=== PATIENT | male | born 1945 | race Caucasian/White ===

== ENCOUNTER 2019-05-01 06:01 | Observation (INO) | payer MEDICARE, BC ==
[2019-05-01] MEDS: Ondansetron 4 MG/2 ML SDV IVPUSH ONE (06:39)
--- NOTE | 2019-05-01 07:00 | EDM.PDOC ---
ED HPI GENERAL MEDICAL PROBLEM - General Chief Complaint: General Stated Complaint: allergic reaction Time Seen by Provider: 05/01/19 06:04 Source of Information: Reports: Patient, EMS, Significant Other History Limitations: Reports: No Limitations - History of Present Illness INITIAL COMMENTS - FREE TEXT/NARRATIVE: Patient presents with allergic reaction to sunflower oil. EMS gave a dose of 0.3 mg epinephrine IM on arrival to patient's house and another dose about 7 minutes later en route. Patient was dusky and having some difficulty breathing initially with sats 82%. He was given Benadryl 50 mg IV after the [facility] intercept about 10 minutes later. Patient improved significantly following the above treatments and is breathing easily on arrival to ER. He has an erythematous, non-urticarial rash on head, neck and trunk. Patient says this started at midnight when he awoke with diarrhea urge. He fainted in the bathroom but his says he didn't hit head or anything. Between 1-2 hours later he developed the rash and airway swelling. He took Benadryl and when it didn't settle down called 911. 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 Since then he and his have meticulously avoided it in foods but accidentally ingested it in some Rice-a-[employer]avier at 1800 last night for supper when they each thought the other had checked ingredients. The 2007 episode involved swelling of his tongue which he doesn't have today. Treatments BREAK OUT WORKER: Reports: Other (see below) Other Treatments BREAK OUT WORKER: benadryl x 2 at home 0130 25 mg more 0345 - Related Data Allergies Allergy/AdvReac Type Severity Reaction Status Date / Time sun flower oil Allergy Seizure Uncoded 05/01/19 06:39 Home Meds: Home Meds Aspirin [Adult Low Dose Aspirin EC] 81 mg PO DAILY 05/01/19 [History] Cyanocobalamin (Vitamin B-12) [B-12] 1,000 mcg PO DAILY 05/01/19 [History] Ferrous Gluconate 324 mg PO Q48H 05/01/19 [History] Fish Oil/[place]-3 Fatty Acids [Fish Oil 1,000 MG] 1,000 mg PO DAILY 05/01/19 [ History] Lisinopril [Zestril] 5 mg PO DAILY 05/01/19 [History] Magnesium 200 mg PO BID 05/01/19 [History] Metoprolol Tartrate [Lopressor] 25 mg PO BID 05/01/19 [History] Omeprazole 20 mg PO Q48H 05/01/19 [History] Simvastatin 5 mg PO BEDTIME 05/01/19 [History] amLODIPine [Norvasc] 5 mg PO DAILY 05/01/19 [History] metFORMIN HCl [Metformin HCl ER] 750 mg PO BID 05/01/19 [History] Social & Family History - Tobacco Use Smoking Status *Q: Never Smoker Second Hand Smoke Exposure: No - Caffeine Use Caffeine Use: Reports: Coffee, Soda - Recreational Drug Use Recreational Drug Use: No ED ROS GENERAL - Review of Systems Review Of Systems: See Below Constitutional: Denies: Fever, Chills HEENT: Reports: Throat Swelling Respiratory: Reports: Shortness of Breath, Other (No Hx of asthma or COPD). Denies: Wheezing, Cough Cardiovascular: Reports: Lightheadedness, Syncope. Denies: Chest Pain Endocrine: Reports: Other (He has NIDDM and takes metformin. He doesn't check glucose at home but generally his glucose was usually in the 90's his states.) GI/Abdominal: Reports: Diarrhea, Vomiting. Denies: Abdominal Pain : Denies: Incontinence (not normally) Musculoskeletal: Denies: Neck Pain, Shoulder Pain, Arm Pain, Back Pain, Hand Pain Skin: Reports: Pruritis, Rash. Denies: Cyanosis, Jaundice, Mottled, Pallor, Diaphoresis, Urticaria Neurological: Reports: Seizure (in ambulance following second dose of epi per EMS). Denies: Confusion, Headache, Trouble Speaking Psychiatric: Denies: Agitation, Anxiety, Confusion Immunologic: Reports: Anaphylaxis, Food Allergy ED EXAM, GENERAL - Physical Exam Exam: See Below Exam Limited By: No Limitations General Appearance: Alert, WD/WN, No Apparent Distress Eye Exam: Bilateral Eye: EOMI, Normal Inspection, PERRL Ears: Normal External Exam, Hearing Grossly Normal Nose: Normal Inspection, No Blood Throat/Mouth: Normal Inspection, Normal Lips, Normal Oropharynx, Normal Voice, No Airway Compromise. No: Perioral Cyanosis Head: Atraumatic, Normocephalic Neck: Normal Inspection, Supple, Non-Tender, Full Range of Motion. No: Carotid Bruit Respiratory/Chest: No Respiratory Distress, Lungs Clear, Normal Breath Sounds, No Accessory Muscle Use. No: Crackles, Rales, Rhonchi, Wheezing, Stridor Cardiovascular: Normal Peripheral Pulses, Regular Rate, Rhythm, No Murmur GI/Abdominal: Normal Bowel Sounds, Soft, Non-Tender Back Exam: Normal Inspection, Full Range of Motion Neurological: Alert, Oriented, Normal Cognition, No Motor/Sensory Deficits Psychiatric: Normal Affect, Normal Mood Skin Exam: Warm, Dry, Intact, Erythema (head, neck and torso) Course - Vital Signs Last Recorded V/S: Last Vital Signs Temp 96.4 F L 05/01/19 06:05 Pulse 92 05/01/19 09:00 Resp 23 H 05/01/19 09:00 BP 114/59 L 05/01/19 09:00 Pulse Ox 92 L 05/01/19 09:00 - Orders/Labs/Meds Orders: Active Orders 24 hr Category Date Time Status Patient Status [ADT] Routine ADT 05/01/19 09:03 Ordered Labs: Laboratory Tests 05/01/19 05/01/19 Range/Units 08:25 08:25 WBC 13.18 H (5.00-10.00) 10^3/uL RBC 4.83 (4.50-6.00) 10^6/uL Hgb 15.1 (13.0-17.0) g/dL Hct 46.2 (40.0-52.0) % MCV 95.7 H (82.0-92.0) fL MCH 31.3 H (27.0-31.0) pg MCHC 32.7 (32.0-36.0) g/dL RDW 13.7 (11.5-14.5) % Plt Count 254 (150-400) 10^3/uL MPV 10.0 (7.4-10.4) fL Add Manual Diff Yes Neutrophils % (Manual) 78 H (50-70) % Band Neutrophils % 10 (4-12) % Lymphocytes % (Manual) 10 L (20-40) % Monocytes % (Manual) 1 L (2-8) % Eosinophils % (Manual) 1 (1-3) % Absolute Neutrophils 10.28 Band Neutrophils # 1.32 Lymphocytes # (Manual) 1.32 Monocytes # (Manual) 0.13 Eosinophils # (Manual) 0.13 Sodium 142 (136-145) mmol/L Potassium 4.7 (3.3-5.3) mmol/L Chloride 107 (98-115) mmol/L Carbon Dioxide 19.0 L (21.0-32.0) mmol/L Anion Gap 20.7 H (5-15) mmol/L BUN 25 (6-25) mg/dL Creatinine 1.36 H (0.51-1.17) mg/dL Est Cr Clr Drug Dosing 48.20 mL/min Estimated GFR (MDRD) 52 mL/min Glucose 314 H (75 - 99) mg/dL Calcium 7.8 L (8.7-10.3) mg/dL Meds: Medications Discontinued Medications Generic Name Dose Route Start Last Admin Trade Name Freq PRN Reason Stop Dose Admin Sodium Chloride 1,000 mls @ 999 mls/hr 05/01/19 06:58 05/01/19 07:08 Normal Saline IV 05/01/19 07:58 999 mls/hr .BOLUS ONE Administration Sodium Chloride 1,000 mls @ 999 mls/hr 05/01/19 07:58 05/01/19 08:27 Normal Saline IV 05/01/19 08:58 999 mls/hr .BOLUS ONE Administration Ondansetron HCl 4 mg 05/01/19 06:34 05/01/19 06:39 Zofran IVPUSH 05/01/19 06:35 4 mg ONETIME ONE Administration Ondansetron HCl Confirm 05/01/19 06:36 05/01/19 08:04 Zofran Administered 05/01/19 06:37 Not Given Dose 4 mg .ROUTE .STK-MED ONE Ranitidine HCl 150 mg 05/01/19 07:00 05/01/19 07:37 Zantac PO 05/01/19 07:01 Not Given ONETIME ONE Ranitidine HCl 150 mg 05/01/19 07:34 05/01/19 07:35 Ranitidine PO 05/01/19 07:35 150 mg ONETIME ONE Administration - Re-Assessments/Exams Free Text/Narrative Re-Assessment/Exam: 05/01/19 07:51 Patient had a syncopal episode due to hypotension when he was getting up (with assistance) to use the bathroom. It lasted about 5 seconds. He didn't get past the foot of the stretcher and was helped back onto it. The nurse and aide were on either side of patient and he didn't fall to floor just back onto the bed. He did experience urine incontinence with it. Prior to this he has been stable and is getting his second liter of NS IV. We will start a second line so delivery can be faster. Patient is breathing well, perfusing and stable now. BP was measured at 83/13 immediately following the episode and he was alert and responsive. BP now 102/45. 05/01/19 08:29 After the hypotensive episode I don't feel patient will be ready for discharge after 4 hours as previously planned. I discussed case with Dr. Ashley who accepted for admission to observation. Further discussion with pt's reveals that his initial episode of anaphylaxis was back in 1999 while they lived in [place], [place]. He also found he had diabetes and had a diabetes-related stroke at that time. He did have another episode of anaphylaxis in 2007 after moving back to this area. So a total of 3 episodes in 20 years. BP now 112/59 and 3rd liter of NS is running. 05/01/19 09:07 Glucose is 314 and patient hasn't checked glucose since 6 months ago at his PCP clinic. He is scheduled for appt in May. I informed Dr. Ashley of the glucose status and she will monitor it closely while in hospital and doesn't want anything treated right now. Patient stable at ER discharge. Departure - Departure Time of Disposition: 09:04 Disposition: Refer to Observation Condition: Good Clinical Impression: Hypotensive episode Anaphylaxis due to food Qualifiers: Encounter type: initial encounter Qualified Code(s): T78.00XA - Anaphylactic reaction due to unspecified food, initial encounter Type 2 diabetes mellitus Qualifiers: Diabetes mellitus longterm insulin use: without exterminator helper termite use Diabetes mellitus complication status: with hyperglycemia Qualified Code(s): E11.65 - Type 2 diabetes mellitus with hyperglycemia - Discharge Information Instructions: Food Allergy, [id number], Epinephrine Injection, Anaphylactic Reaction, Adult, [id number] Forms: ED Department Discharge Sepsis Event Note - Evaluation Sepsis Screening Result: No Definite Risk - Focused Exam Vital Signs: Vital Signs Temp Pulse Resp BP Pulse Ox 05/01/19 09:00 92 23 H 114/59 L 92 L 05/01/19 08:30 98 23 H 106/54 L 93 L 05/01/19 08:05 96 14 112/59 L 95 05/01/19 06:30 108 H 20 146/61 H 97 05/01/19 06:05 96.4 F L 104 H 20 134/90 94 L Date Exam was Performed: 05/01/19 Time Exam was Performed: 09:12 - My Orders Last 24 Hours: My Active Orders 05/01/19 09:03 Patient Status [ADT] Routine - Assessment/Plan Last 24 Hours: My Active Orders 05/01/19 09:03 Patient Status [ADT] Routine
[2019-05-01] MEDS: Sodium Chloride 0.9% 1,000 ML IV ONE ×2 (07:08→08:27)
[2019-05-01] MEDS: RANITIDINE 150 MG PO ONE (07:35)
[2019-05-01] MEDS: Ondansetron 4 MG/2 ML SDV ONE (08:04)
[2019-05-01 08:51] LABS: ANION GAP 20.7 mmol/L (5-15)
--- NOTE | 2019-05-01 11:19 | PCM.HP.2 ---
H&P History of Present Illness - General Date of Service: 05/01/19 Admit Problem/Dx: Admission Diagnosis/Problem Admission Diagnosis/Problem Anaphylaxis Source of Information: Patient, Old Records, RN Notes Reviewed - History of Present Illness Initial Comments - Free Text/Narative: Pleasant 73 year old male with a 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 At 1800 last evening he ate Rice-a-Javier without checking the label and developed nausea/ vomiting/diarrhea at home at around midnight. He was getting up to go to the bathroom and got light-headed and fainted. His notes his skin was red from head to toe. He developed itchiness of his tongue. He took diphenhydramine at home and called for EMS. EMS gave 0.3mg IM epinephrine upon arrival and a subsequent dose approximately seven minutes later. He was dusky with oxygen saturation was 82% en route. Upon intercept with [facility] ambulance patient was given diphendydramine 50mg IV after which there was significant improvement and ease in breathing. ED course: Upon arrival to the [facility] ED patient had erythematous, non-urticarial rash on head, neck and trunk. Temp 35.8C, pulse 104, blood pressure 134/90 with respirations of 20 and O2 sat of 94%. Patient was given IV bolus of NS 1000mL times two in the ED, ondansetron 4mg IV push once, ranitidine 150mg orally once and initially was clinically improving. At 0751 patient asked to get up to go to the bathroom and experienced a syncopal episode related to hypotension (83/13 ), event lasted approximately five seconds. He experienced urine incontinence and was helped back onto the stretcher. A second IV line was started and and shortly after his blood pressure was 102/45. He received a total of three liters of NS in the ED. Labs were drawn WBC 13.18, neutrophils 78, otherwise unremarkable; BMP shows CO2 19, BUN 25, Creatinine 1.36, GFR 52, glucose 314 and calcium 7.8. Was accepted and admitted to Dr. Vangie Ashley MD in observation status. - Related Data Allergies/Adverse Reactions: Allergies Allergy/AdvReac Type Severity Reaction Status Date / Time sun flower oil Allergy Seizure Uncoded 05/01/19 06:39 Home Medications: Home Meds Aspirin [Adult Low Dose Aspirin EC] 81 mg PO DAILY 05/01/19 [History] Cyanocobalamin (Vitamin B-12) [B-12] 1,000 mcg PO DAILY 05/01/19 [History] Ferrous Gluconate 324 mg PO Q48H 05/01/19 [History] Fish Oil/[place]-3 Fatty Acids [Fish Oil 1,000 MG] 1,000 mg PO DAILY 05/01/19 [ History] Lisinopril [Zestril] 5 mg PO DAILY 05/01/19 [History] Magnesium 200 mg PO BID 05/01/19 [History] Metoprolol Tartrate [Lopressor] 25 mg PO BID 05/01/19 [History] Omeprazole 20 mg PO Q48H 05/01/19 [History] Simvastatin 5 mg PO BEDTIME 05/01/19 [History] amLODIPine [Norvasc] 5 mg PO DAILY 05/01/19 [History] metFORMIN HCl [Metformin HCl ER] 750 mg PO BID 05/01/19 [History] Past Medical History Cardiovascular History: Reports: High Cholesterol, Hypertension Neurological History: Reports: Seizure, TIA Endocrine/Metabolic History: Reports: Diabetes, Type II - Past Surgical History GI Surgical History: Reports: Appendectomy Neurological Surgical History: Reports: None Musculoskeletal Surgical History: Reports: Hip Replacement Social & Family History - Family History Family Medical History: Noncontributory - Tobacco Use Smoking Status *Q: Never Smoker Second Hand Smoke Exposure: No - Caffeine Use Caffeine Use: Reports: Coffee, Soda - Recreational Drug Use Recreational Drug Use: No H&P Review of Systems - Review of Systems: Review Of Systems: See Below General: Reports: Fatigue. Denies: Fever, Weakness HEENT: Reports: Glasses. Denies: Headaches, Vertigo Pulmonary: Denies: Shortness of Breath, Wheezing, Cough Cardiovascular: Reports: Edema (hands and feet). Denies: Chest Pain, Palpitations, Lightheadedness, Syncope Gastrointestinal: Denies: Abdominal Pain, Constipation, Diarrhea, Nausea Genitourinary: Denies: Dysuria, Frequency, Pain, Hematuria Musculoskeletal: Denies: Neck Pain, Back Pain, Muscle Pain Skin: Denies: Pruritis, Rash, Erythema Psychiatric: Denies: Confusion, Depression, Mood Lability Neurological: Denies: Confusion, Headache, Numbness, Syncope, Weakness Hematologic/Lymphatic: Reports: No Symptoms Exam - Exam Exam: See Below - Vital Signs Vital Signs: Last Vital Signs Temp 35.8 C L 05/01/19 06:05 Pulse 92 05/01/19 09:00 Resp 23 H 05/01/19 09:00 BP 114/59 L 05/01/19 09:00 Pulse Ox 92 L 05/01/19 09:00 Weight: 88.451 kg - Exam Physical Exam Comments:: GENERAL: Well-appearing adult in no acute distress, sitting up in bed. HEENT: Normocephalic, atraumatic. Conjunctiva clear. Nares patent without discharge. Mucous membranes moist, posterior pharynx unremarkable. NECK: Supple, no masses. CV: Regular rate and rhythm, no murmurs, rubs, or gallops. 2+ radial pulses. PULMONARY: Normal effort, clear to auscultation bilaterally, no wheezes, rales, or rhonchi. ABDOMEN: Positive bowel sounds, soft, nontender, nondistended. EXTREMITIES: Edema to bilateral hands and feet, no cyanosis or clubbing. MUSCULOSKELETAL: Moves all extremities well. NEUROLOGICAL: No obvious deficits. DERMATOLOGIC: No rashes or suspicious lesions in exposed areas. PSYCHIATRIC: Alert, interactive, appropriate affect. - Patient Data Lab Results Last 24 hrs: Laboratory Results - last 24 hr 05/01/19 05/01/19 Range/Units 08:25 08:25 WBC 13.18 H (5.00-10.00) 10^3/uL RBC 4.83 (4.50-6.00) 10^6/uL Hgb 15.1 (13.0-17.0) g/dL Hct 46.2 (40.0-52.0) % MCV 95.7 H (82.0-92.0) fL MCH 31.3 H (27.0-31.0) pg MCHC 32.7 (32.0-36.0) g/dL RDW 13.7 (11.5-14.5) % Plt Count 254 (150-400) 10^3/uL MPV 10.0 (7.4-10.4) fL Add Manual Diff Yes Neutrophils % (Manual) 78 H (50-70) % Band Neutrophils % 10 (4-12) % Lymphocytes % (Manual) 10 L (20-40) % Monocytes % (Manual) 1 L (2-8) % Eosinophils % (Manual) 1 (1-3) % Absolute Neutrophils 10.28 Band Neutrophils # 1.32 Lymphocytes # (Manual) 1.32 Monocytes # (Manual) 0.13 Eosinophils # (Manual) 0.13 Sodium 142 (136-145) mmol/L Potassium 4.7 (3.3-5.3) mmol/L Chloride 107 (98-115) mmol/L Carbon Dioxide 19.0 L (21.0-32.0) mmol/L Anion Gap 20.7 H (5-15) mmol/L BUN 25 (6-25) mg/dL Creatinine 1.36 H (0.51-1.17) mg/dL Est Cr Clr Drug Dosing 48.20 mL/min Estimated GFR (MDRD) 52 mL/min Glucose 314 H (75 - 99) mg/dL Calcium 7.8 L (8.7-10.3) mg/dL Result Diagrams: 05/01/19 08:25 05/01/19 08:25 Sepsis Event Note - Evaluation Sepsis Screening Result: No Definite Risk - Focused Exam Vital Signs: Vital Signs Temp Pulse Resp BP Pulse Ox 05/01/19 09:00 92 23 H 114/59 L 92 L 05/01/19 08:30 98 23 H 106/54 L 93 L 05/01/19 08:05 96 14 112/59 L 95 05/01/19 06:30 108 H 20 146/61 H 97 05/01/19 06:05 35.8 C L 104 H 20 134/90 94 L Date Exam was Performed: 05/01/19 Time Exam was Performed: 18:32 Problem List Initiated/Reviewed/Updated: Yes Orders Last 24hrs: Active Orders 24 hr Category Date Time Status Patient Status [ADT] Routine ADT 05/01/19 09:03 Active Assessment/Plan Comment:: HPI summary: Pleasant 73 year old male with a 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 At 1800 last evening he ate Rice-a-Javier without checking the label and developed nausea/ vomiting/diarrhea at home at around midnight. He was getting up to go to the bathroom and got light-headed and fainted. His notes his skin was red from head to toe. He developed itchiness of his tongue. He took diphenhydramine at home and called for EMS. EMS gave 0.3mg IM epinephrine upon arrival and a subsequent dose approximately seven minutes later. He was dusky with oxygen saturation was 82% en route. Upon intercept with [facility] ambulance patient was given diphendydramine 50mg IV after which there was significant improvement and ease in breathing. ED course: Upon arrival to the [facility] ED patient had erythematous, non-urticarial rash on head, neck and trunk. Temp 35.8C, pulse 104, blood pressure 134/90 with respirations of 20 and O2 sat of 94%. Patient was given IV bolus of NS 1000mL times two in the ED, ondansetron 4mg IV push once, ranitidine 150mg orally once and initially was clinically improving. At 0751 patient asked to get up to go to the bathroom and experienced a syncopal episode related to hypotension (83/13 ), event lasted approximately five seconds. He experienced urine incontinence and was helped back onto the stretcher. A second IV line was started and and shortly after his blood pressure was 102/45. He received a total of three liters of NS in the ED. Labs were drawn WBC 13.18, neutrophils 78, otherwise unremarkable; BMP shows CO2 19, BUN 25, Creatinine 1.36, GFR 52, glucose 314 and calcium 7.8. Was accepted and admitted to Dr. Vangie Ashley MD in observation status. Hospitalization problems and plan: # Anaphylxis r/t known allergy to sunflower oil and recent unintentional exposure # Hypotension, improving - saline lock IVF - hold antihypertensives (amlodipine, metoprolol tartrate, and lisinopril) for now - monitor blood pressure every four hours - stand by assist with gait belt when up to bathroom # Hyperglycemia, secondary to anaphylaxis - monitor blood glucose levels Chronic, stable conditions: # HTN: holding amlodipine 5mg daily, metoprolol tartrate 25mg twice daily, lisinopril 5mg daily. # HLD: taking simvastatin 5mg nightly and fish oil # DM Type 2: holding metformin XR 1500mg daily; last A1c 7 on 12/15/2018. Checking blood sugars as above # H/O DVT bilateral lower extremities: on aspirin 81mg daily # Anemia: taking ferrous gluconate 324mg every other day and vitamin B12 1000 mcg daily (not taking as directed, takes a couple of days here and there) # H/O TIA: # GERD: PPI therapy with omeprazole 20mg every other day # Hiatal hernia: # Schatzki's ring: # Dysphagia # Osteoarthritis # Nocturia Hospitalization details: # FEN: Saline lock, electrolytes stable, diabetic diet # PPX: ambulate now. Will start enoxaparin for DVT prophylaxis if staying for 24 hours # Code status: Full code # Emergency contact: Tianna, at bedside # Disposition: Admit to observation status for anaphylaxis and necessary monitoring. Possible late afternoon discharge based on status.
--- NOTE | 2019-05-01 19:12 | PCM.DCSUM1 ---
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 At 1800 last evening he ate Rice-a-Javier without checking the label and developed nausea/ vomiting/diarrhea at home at around midnight. He was getting up to go to the bathroom and got light-headed and fainted. His notes his skin was red from head to toe. He developed itchiness of his tongue. He took diphenhydramine at home and called for EMS. EMS gave 0.3mg IM epinephrine upon arrival and a subsequent dose approximately seven minutes later. He was dusky with oxygen saturation was 82% en route. Upon intercept with [place] ambulance patient was given diphendydramine 50mg IV after which there was significant improvement and ease in breathing. Upon arrival to the [place] ED patient had erythematous, non-urticarial rash on head, neck and trunk. Temp 35.8C, pulse 104, blood pressure 134/90 with respirations of 20 and O2 sat of 94%. Patient was given IV bolus of NS 1000mL times two in the ED, ondansetron 4mg IV push once, ranitidine 150mg orally once and initially was clinically improving. At 0751 patient asked to get up to go to the bathroom and experienced a syncopal episode related to hypotension (83/13 ), event lasted approximately five seconds. He experienced urine incontinence and was helped back onto the stretcher. A second IV line was started and and shortly after his blood pressure was 102/45. He received a total of three liters of NS in the ED. Labs were drawn WBC 13.18, neutrophils 78, otherwise unremarkable; BMP shows CO2 19, BUN 25, Creatinine 1.36, GFR 52, glucose 314 and calcium 7.8. Was accepted and admitted to Dr. Vangie Ashley MD in observation status. Patient was weened off of his oxygen requirement. Vital signs normalized. Blood sugar improved to expected range. No further respiratory distress or signs of anaphylaxis. Telemetry without concerns. Patient and both felt ready for discharge. He is very knowledgeable about his allergy and monitoring and treatment. Discharge and follow-up recommendations: - Discharge to home - New medications at discharge: none - Follow-up as scheduled in [place] with Dr. Margarette Martínez Please note this is a same day admission and discharge. Diagnosis: Stroke: No - Discharge Data Discharge Date: 05/01/19 Discharge Disposition: Home, Self-Care 01 Condition: Good - Referral to Home Health Primary Care Physician: PCP Unobtainable - Patient Instructions Diet: Usual Diet as Tolerated Activity: As Tolerated - Discharge Plan *PRESCRIPTION DRUG MONITORING PROGRAM REVIEWED*: Not Applicable *COPY OF PRESCRIPTION DRUG MONITORING REPORT IN PATIENT MORGAN: Not Applicable Home Medications: Home Meds Aspirin [Adult Low Dose Aspirin EC] 81 mg PO DAILY 05/01/19 [History] Cyanocobalamin (Vitamin B-12) [B-12] 1,000 mcg PO DAILY 05/01/19 [History] Ferrous Gluconate 324 mg PO Q48H 05/01/19 [History] Fish Oil/[place]-3 Fatty Acids [Fish Oil 1,000 MG] 1,000 mg PO DAILY 05/01/19 [ History] Lisinopril [Zestril] 5 mg PO DAILY 05/01/19 [History] Magnesium 200 mg PO BID 05/01/19 [History] Metoprolol Tartrate [Lopressor] 25 mg PO BID 05/01/19 [History] Omeprazole 20 mg PO Q48H 05/01/19 [History] Simvastatin 5 mg PO BEDTIME 05/01/19 [History] amLODIPine [Norvasc] 5 mg PO DAILY 05/01/19 [History] metFORMIN HCl [Metformin HCl ER] 750 mg PO BID 05/01/19 [History] Patient Handouts: Food Allergy, [id number], Epinephrine Injection, Anaphylactic Reaction, Adult, [id number] Referrals: Margarette Martínez, [Physician] - (As planned, or sooner if concerns arise) - Discharge Summary/Plan Comment DC Time >30 min.: Yes - Patient Data Vitals - Most Recent: Last Vital Signs Temp 36.7 C 05/01/19 15:00 Pulse 111 H 05/01/19 15:00 Resp 24 H 05/01/19 15:00 BP 110/71 05/01/19 15:00 Pulse Ox 97 05/01/19 15:00 Weight - Most Recent: 88.451 kg I&O - Last 24 hours: Intake & Output 05/01/19 05/01/19 05/01/19 06:59 14:59 22:59 Intake Total 500 Balance 500 Lab Results - Last 24 hrs: Laboratory Results - last 24 hr 05/01/19 05/01/19 05/01/19 Range/Units 08:25 08:25 17:33 WBC 13.18 H (5.00-10.00) 10^3/uL RBC 4.83 (4.50-6.00) 10^6/uL Hgb 15.1 (13.0-17.0) g/dL Hct 46.2 (40.0-52.0) % MCV 95.7 H (82.0-92.0) fL MCH 31.3 H (27.0-31.0) pg MCHC 32.7 (32.0-36.0) g/dL RDW 13.7 (11.5-14.5) % Plt Count 254 (150-400) 10^3/uL MPV 10.0 (7.4-10.4) fL Add Manual Diff Yes Neutrophils % (Manual) 78 H (50-70) % Band Neutrophils % 10 (4-12) % Lymphocytes % (Manual) 10 L (20-40) % Monocytes % (Manual) 1 L (2-8) % Eosinophils % (Manual) 1 (1-3) % Absolute Neutrophils 10.28 Band Neutrophils # 1.32 Lymphocytes # (Manual) 1.32 Monocytes # (Manual) 0.13 Eosinophils # (Manual) 0.13 Sodium 142 (136-145) mmol/L Potassium 4.7 (3.3-5.3) mmol/L Chloride 107 (98-115) mmol/L Carbon Dioxide 19.0 L (21.0-32.0) mmol/L Anion Gap 20.7 H (5-15) mmol/L BUN 25 (6-25) mg/dL Creatinine 1.36 H (0.51-1.17) mg/dL Est Cr Clr Drug Dosing 48.20 mL/min Estimated GFR (MDRD) 52 mL/min Glucose 314 H (75 - 99) mg/dL POC Glucose 178 H (74-106) mg/dl Calcium 7.8 L (8.7-10.3) mg/dL Med Orders - Current: Current Medications Discontinued Medications Sodium Chloride (Normal Saline) 1,000 mls @ 999 mls/hr IV .BOLUS ONE Stop: 05/01/19 07:58 Last Admin: 05/01/19 07:08 Dose: 999 mls/hr Sodium Chloride (Normal Saline) 1,000 mls @ 999 mls/hr IV .BOLUS ONE Stop: 05/01/19 08:58 Last Admin: 05/01/19 08:27 Dose: 999 mls/hr Ondansetron HCl (Zofran) 4 mg IVPUSH ONETIME ONE Stop: 05/01/19 06:35 Last Admin: 05/01/19 06:39 Dose: 4 mg Ondansetron HCl (Zofran) Confirm Administered Dose 4 mg .ROUTE .STK-MED ONE Stop: 05/01/19 06:37 Last Admin: 05/01/19 08:04 Dose: Not Given Ranitidine HCl (Zantac) 150 mg PO ONETIME ONE Stop: 05/01/19 07:01 Last Admin: 05/01/19 07:37 Dose: Not Given Ranitidine HCl (Ranitidine) 150 mg PO ONETIME ONE Stop: 05/01/19 07:35 Last Admin: 05/01/19 07:35 Dose: 150 mg
== END 2019-05-01 19:00 | disposition home or self-care (01) ==
LOC: KA.ED 06:01 → KA.MS 09:03 → UNDOADMOB 09:03 → KA.MS 09:30 → UNDOADMOB 09:30 → UNDODISOB 19:00
PROVIDERS: ADMIT Family Medicine; ATTEND Family Medicine
DX: T78.09XA Anaphylactic reaction due to other food products, initial encounter (principal); I95.9 Hypotension, unspecified; E11.65 Type 2 diabetes mellitus with hyperglycemia; J96.01 Acute respiratory failure with hypoxia; I10 Essential (primary) hypertension; E78.00 Pure hypercholesterolemia, unspecified; E78.5 Hyperlipidemia, unspecified; D64.9 Anemia, unspecified; K21.9 Gastro-esophageal reflux disease without esophagitis; K44.9 Diaphragmatic hernia without obstruction or gangrene; K22.2 Esophageal obstruction; M19.90 Unspecified osteoarthritis, unspecified site; R35.1 Nocturia; Z79.84 Long term (current) use of oral hypoglycemic drugs; Z79.82 Long term (current) use of aspirin; Z79.899 Other long term (current) drug therapy; Z86.718 Personal history of other venous thrombosis and embolism; Z86.73 Personal history of transient ischemic attack (TIA), and cerebral infarction without residual deficits
CPT/HCPCS: 36415; 80048; 82962; 85025; 99284; A9270-GY; J2405; J7030

== ENCOUNTER 2019-12-25 21:25 | Emergency (ER) | payer MEDICARE, BC ==
--- NOTE | 2019-12-25 22:27 | EDM.PDOC ---
ED HPI GENERAL MEDICAL PROBLEM - General Chief Complaint: General Stated Complaint: allergic reaction Time Seen by Provider: 12/25/19 22:03 Source of Information: Reports: Patient, EMS History Limitations: Reports: No Limitations - History of Present Illness INITIAL COMMENTS - FREE TEXT/NARRATIVE: Patient presents with an allergic reaction that started about 2229. He started to not feel good and felt itchy in his arm pits. He looked in the mirror and noticed hives on his torso. He took Benadryl 25mg. A little later he started to feel his tongue swell so he called 911. EMS crew administered one of his epipens and the tongue swelling quickly resolved. En route he was given another 25 mg of Benadryl IV. The itch is gone and hives have subsided. He now is feeling normal except for the drowsiness from Benadryl. When this started he had been sitting at his table checking his vitals for the Covid nurse in [place] where he had just returned from treatment of it yesterday. He hadn't been intubated while there. Treatments WORSTED WINDER: Reports: Oxygen, See EMS Report, Other (see below) Other Treatments WORSTED WINDER: epi pen, benadryl - Related Data Allergies Allergy/AdvReac Type Severity Reaction Status Date / Time sunflower seed Allergy "throat Verified 12/25/19 21:54 starts to swell up" sun flower oil Allergy Seizure Uncoded 12/25/19 21:54 Home Meds: Home Meds Aspirin [Adult Low Dose Aspirin EC] 81 mg PO DAILY 05/01/19 [History] Fish Oil/[place]-3 Fatty Acids [Fish Oil 1,000 MG] 1,000 mg PO DAILY 05/01/19 [History] Magnesium 200 mg PO BID 05/01/19 [History] Metoprolol Tartrate [Lopressor] 25 mg PO BID 05/01/19 [History] Omeprazole 20 mg PO Q48H 05/01/19 [History] Simvastatin 5 mg PO BEDTIME 05/01/19 [History] amLODIPine [Norvasc] 5 mg PO DAILY 05/01/19 [History] lisinopriL [Zestril] 5 mg PO DAILY 05/01/19 [History] metFORMIN HCl [Metformin HCl ER] 750 mg PO BID 05/01/19 [History] EPINEPHrine [Epipen] 1 injection SQ ASDIRECTED PRN 12/25/19 [History] Insulin Glargine,Hum.Rec.Anlog [Tej Sterling U-100] 10 unit SQ ASDIRECTED 12/25/19 [History] dexAMETHasone [Dexamethasone] 6 mg PO ASDIRECTED 12/25/19 [History] Past Medical History Cardiovascular History: Reports: High Cholesterol, Hypertension Neurological History: Reports: Seizure, TIA Endocrine/Metabolic History: Reports: Diabetes, Type II - Infectious Disease History Infectious Disease History: Reports: Novel Coronavirus - Past Surgical History GI Surgical History: Reports: Appendectomy Neurological Surgical History: Reports: None Musculoskeletal Surgical History: Reports: Hip Replacement Social & Family History - Family History Family Medical History: Noncontributory - Caffeine Use Caffeine Use: Reports: Coffee, Soda ED ROS GENERAL - Review of Systems Review Of Systems: See Below Constitutional: Denies: Fever, Chills, Malaise, Weakness HEENT: Denies: Ear Pain, Throat Pain, Vision Change Respiratory: Denies: Shortness of Breath (never had any), Cough Cardiovascular: Denies: Chest Pain, Lightheadedness, Syncope GI/Abdominal: Denies: Abdominal Pain, Vomiting Musculoskeletal: Reports: No Symptoms Skin: Denies: Cyanosis, Jaundice, Mottled, Pallor, Diaphoresis Neurological: Denies: Confusion, Dizziness, Seizure, Syncope, Trouble Speaking, Difficulty Walking Psychiatric: Denies: Agitation, Anxiety ED EXAM, GENERAL - Physical Exam Exam: See Below Exam Limited By: No Limitations General Appearance: Alert, WD/WN, No Apparent Distress Eye Exam: Bilateral Eye: EOMI, Normal Inspection, PERRL Ears: Normal External Exam, Hearing Grossly Normal Nose: Normal Inspection, No Blood Throat/Mouth: Normal Inspection, Normal Lips, Normal Teeth, Normal Gums, Normal Oropharynx, Normal Voice, No Airway Compromise Head: Atraumatic, Normocephalic. No: Facial Swelling Neck: Normal Inspection, Full Range of Motion Respiratory/Chest: No Respiratory Distress, Lungs Clear, Normal Breath Sounds, No Accessory Muscle Use Cardiovascular: Regular Rate, Rhythm GI/Abdominal: Soft, Non-Tender Back Exam: Normal Inspection, Full Range of Motion Extremities: Normal Inspection, Normal Range of Motion, Normal Capillary Refill Neurological: Alert, Oriented, Normal Cognition, No Motor/Sensory Deficits Psychiatric: Normal Affect, Normal Mood Skin Exam: Warm, Dry, Intact, Normal Color, No Rash Course - Vital Signs Last Recorded V/S: Last Vital Signs Temp 97.2 F 12/25/19 21:30 Pulse 81 12/25/19 21:30 Resp 15 12/25/19 21:30 BP 148/68 H 12/25/19 21:30 Pulse Ox 97 12/25/19 21:30 - Re-Assessments/Exams Free Text/Narrative Re-Assessment/Exam: 12/25/19 22:51 Patient is doing great and feels ready to go home. His is here to pick him up. He continues to have ongoing sequelae of the reaction. We discussed that sometimes there can be a delayed second reaction and he has his epipen if needed. He says that he had tongue swelling worse than tonight with a reaction about 8 months ago but that occurred within 10 minutes of the initial reaction onset. He isn't sure tonight what caused the reaction as he doesn't think he h ad any sunflower oil. Patient discharged to home in stable condition. Departure - Departure Time of Disposition: 22:45 Disposition: Home, Self-Care 01 Condition: Good Clinical Impression: Allergic reaction Qualifiers: Encounter type: initial encounter Qualified Code(s): T78.40XA - Allergy, unspecified, initial encounter - Discharge Information Referrals: Margarette Martínez, [Primary Care Provider] - Additional Instructions: Drink 8 cups of water daily. Watch for any signs of worsening and use your epipen if needed, then return to ER. Follow up with your PCP as needed. Sepsis Event Note (ED) - Evaluation Sepsis Screening Result: No Definite Risk - Focused Exam Vital Signs: Vital Signs Temp Pulse Resp BP Pulse Ox 12/25/19 21:30 97.2 F 81 15 148/68 H 97
== END 2019-12-25 23:00 | disposition home or self-care (01) ==
LOC: KA.ED 21:25
DX: L50.0 Allergic urticaria (principal); I10 Essential (primary) hypertension; E78.00 Pure hypercholesterolemia, unspecified; E11.9 Type 2 diabetes mellitus without complications; Z90.49 Acquired absence of other specified parts of digestive tract; Z79.4 Long term (current) use of insulin; Z91.018 Allergy to other foods; Z79.82 Long term (current) use of aspirin; Z79.899 Other long term (current) drug therapy
CPT/HCPCS: 99285

== ENCOUNTER 2020-01-20 20:26 | Emergency (ER) | payer MEDICARE, BC ==
[2020-01-20] MEDS ORDERED: diphenhydrAMINE 25 MG Cap PO ONE (20:54)
--- NOTE | 2020-01-20 21:22 | EDM.PDOC ---
ED HPI GENERAL MEDICAL PROBLEM - General Chief Complaint: General Stated Complaint: ALLERGIC REACTION Time Seen by Provider: 01/20/20 21:00 Source of Information: Reports: Patient History Limitations: Reports: No Limitations - History of Present Illness INITIAL COMMENTS - FREE TEXT/NARRATIVE: Patient presents with an allergic reaction. He thinks it was peanuts that caused it but he has been known to be allergic to sunflower seeds and oil in the past. He had some peanuts at 7:15 and doesn't think there was any sunflower oil but may have been processed in same machine. He began to feel itchy in his palms (which is how his reactions generally start)so took Benadryl 25 mg at 7:25. A few minutes later he checked his armpits and noticed a rash starting, noticed tingling in the back of his tongue. Those three things, along with rash at belt line and groin are his usual signs. He used the EpiPen and then came to ER. He was hospitalized with Covid about 5 weeks ago and had low oxygen and mild pneumonia with it. He still has a very mild lingering cough but doing well. Treatments PATIENT CARE REPRESENTATIVE: Reports: Other (see below) Other Treatments PATIENT CARE REPRESENTATIVE: benadryl, epi pen - Related Data Allergies Allergy/AdvReac Type Severity Reaction Status Date / Time peanut Allergy Rash Verified 01/20/20 20:56 sunflower seed Allergy "throat Verified 01/20/20 20:56 starts to swell up" sun flower oil Allergy Seizure Uncoded 01/20/20 20:56 Home Meds: Home Meds Aspirin [Adult Low Dose Aspirin EC] 81 mg PO DAILY 05/01/19 [History] Fish Oil/[place]-3 Fatty Acids [Fish Oil 1,000 MG] 1,000 mg PO DAILY 05/01/19 [History] Magnesium 200 mg PO BID 05/01/19 [History] Metoprolol Tartrate [Lopressor] 25 mg PO BID 05/01/19 [History] Omeprazole 20 mg PO Q48H 05/01/19 [History] Simvastatin 5 mg PO BEDTIME 05/01/19 [History] amLODIPine [Norvasc] 5 mg PO DAILY 05/01/19 [History] lisinopriL [Zestril] 5 mg PO DAILY 05/01/19 [History] metFORMIN HCl [Metformin HCl ER] 750 mg PO BID 05/01/19 [History] EPINEPHrine [Epipen] 1 injection SQ ASDIRECTED PRN 12/25/19 [History] Insulin Glargine,Hum.Rec.Anlog [Basagldileep Winikpen U-100] 10 unit SQ ASDIRECTED 12/25/19 [History] Cyanocobalamin (Vitamin B12) [Vitamin B12] 500 mcg PO BID 01/20/20 [History] Past Medical History HEENT History: Reports: Impaired Vision Other HEENT History: wears glasses Cardiovascular History: Reports: High Cholesterol, Hypertension Other Respiratory History: Covid-19 in November 2019 Neurological History: Reports: Seizure, TIA Endocrine/Metabolic History: Reports: Diabetes, Type II - Infectious Disease History Infectious Disease History: Reports: Novel Coronavirus - Past Surgical History GI Surgical History: Reports: Appendectomy Neurological Surgical History: Reports: None Musculoskeletal Surgical History: Reports: Hip Replacement Social & Family History - Family History Family Medical History: No Pertinent Family History - Caffeine Use Caffeine Use: Reports: Coffee, Soda ED ROS GENERAL - Review of Systems Review Of Systems: See Below Constitutional: Denies: Fever, Chills, Malaise, Weakness HEENT: Denies: Eye Pain, Throat Pain, Throat Swelling, Vision Change Respiratory: Denies: Shortness of Breath, Wheezing Cardiovascular: Denies: Chest Pain, Edema, Lightheadedness, Syncope GI/Abdominal: Denies: Abdominal Pain, Diarrhea, Vomiting : Reports: No Symptoms Musculoskeletal: Reports: No Symptoms Skin: Reports: Rash. Denies: Cyanosis, Jaundice, Mottled, Pallor, Diaphoresis Neurological: Denies: Confusion, Dizziness, Seizure, Syncope, Trouble Speaking, Difficulty Walking Psychiatric: Denies: Agitation, Anxiety, Confusion Immunologic: Reports: Food Allergy. Denies: Anaphylaxis ED EXAM, GENERAL - Physical Exam Exam: See Below Exam Limited By: No Limitations General Appearance: Alert, WD/WN, No Apparent Distress Eye Exam: Bilateral Eye: EOMI, Normal Inspection, PERRL Ears: Normal External Exam, Hearing Grossly Normal Nose: Normal Inspection, No Blood Throat/Mouth: Normal Inspection, Normal Lips, Normal Teeth, Normal Gums, Normal Oropharynx, Normal Voice, No Airway Compromise Head: Atraumatic, Normocephalic Neck: Normal Inspection, Full Range of Motion Respiratory/Chest: No Respiratory Distress, No Accessory Muscle Use, Crackles (m ild in bases). No: Rhonchi, Wheezing, Stridor Cardiovascular: Regular Rate, Rhythm, No Murmur Back Exam: Normal Inspection, Full Range of Motion Extremities: Normal Inspection, Normal Range of Motion Neurological: Alert, Oriented, Normal Cognition, No Motor/Sensory Deficits Psychiatric: Normal Affect, Normal Mood Skin Exam: Warm, Dry, Intact, Normal Color Course - Vital Signs Last Recorded V/S: Last Vital Signs Temp 98.8 F 01/20/20 20:30 Pulse 76 01/20/20 20:30 Resp 16 01/20/20 20:30 BP 149/75 H 01/20/20 20:30 Pulse Ox 95 01/20/20 20:30 - Orders/Labs/Meds Meds: Medications Discontinued Medications Generic Name Dose Route Start Last Admin Trade Name Freq PRN Reason Stop Dose Admin Diphenhydramine HCl 25 mg 01/20/20 20:54 Benadryl PO 01/20/20 20:55 ONETIME ONE - Re-Assessments/Exams Free Text/Narrative Re-Assessment/Exam: 01/20/20 21:19 Discussed findings and recommendations with patient. He is feeling back to normal and declined the additional dose of Benadryl 25 mg that I originally wanted. He has been through this about 5 times total, 3 in the past year. He is comfortable with his ability to use his treatment options when needed. Pt is discharged to home in stable condition. Departure - Departure Time of Disposition: 21:16 Disposition: Home, Self-Care 01 Condition: Good Clinical Impression: Allergic reaction to food Qualifiers: Encounter type: initial encounter Qualified Code(s): T78.1XXA - Other adverse food reactions, not elsewhere classified, initial encounter - Discharge Information Referrals: Margarette Martínez DO [Primary Care Provider] - Additional Instructions: Use your Benadryl and/or EpiPen as needed. Follow up with your PCP or return to ER as needed for any recurrence or other problems. Sepsis Event Note (ED) - Evaluation Sepsis Screening Result: No Definite Risk - Focused Exam Vital Signs: Vital Signs Temp Pulse Resp BP Pulse Ox 01/20/20 20:30 98.8 F 76 16 149/75 H 95
== END 2020-01-20 21:28 | disposition home or self-care (01) ==
LOC: KA.ED 20:26
DX: T78.1XXA Other adverse food reactions, not elsewhere classified, initial encounter (principal); Z91.010 Allergy to peanuts; Z91.018 Allergy to other foods; E78.00 Pure hypercholesterolemia, unspecified; I10 Essential (primary) hypertension; Z86.73 Personal history of transient ischemic attack (TIA), and cerebral infarction without residual deficits; Z79.84 Long term (current) use of oral hypoglycemic drugs; Z79.899 Other long term (current) drug therapy
CPT/HCPCS: 99283

== ENCOUNTER 2021-03-21 20:11 | Emergency (ER) | payer MEDICARE, BC | END 2021-03-21 21:45 | disposition home or self-care (01) | LOC: KA.ED 20:11 | DX: T78.40XA Allergy, unspecified, initial encounter (principal); E78.00 Pure hypercholesterolemia, unspecified; I10 Essential (primary) hypertension; K21.9 Gastro-esophageal reflux disease without esophagitis; E11.9 Type 2 diabetes mellitus without complications; Z86.73 Personal history of transient ischemic attack (TIA), and cerebral infarction without residual deficits; Z91.010 Allergy to peanuts; Z91.048 Other nonmedicinal substance allergy status; Z79.82 Long term (current) use of aspirin; Z79.84 Long term (current) use of oral hypoglycemic drugs; Z79.899 Other long term (current) drug therapy | CPT/HCPCS: 99284 ==

== ENCOUNTER 2023-12-29 21:24 | Emergency (ER) | payer MEDICARE, BC ==
[2023-12-29] MEDS: methylPREDNISolone Sodium Succinate 125 MG/2 ML SDV IV ONE (21:35)
[2023-12-29] MEDS: Water For Injection, Sterile 20 ML ONE (21:35)
[2023-12-29 21:54] LABS: BASOPHILS ABSOLUTE AUTO 0.01 10^3/uL (0.00-0.10); BASOPHILS PERCENT AUTO 0.1 % (0.0-1.0); EOSINOPHILS ABSOLUTE AUTO 0.15 10^3/uL (0.10-0.30); EOSINOPHILS PERCENT AUTO 1.3 % (1.0-3.0); HEMATOCRIT 45.1 % (40.0-52.0); HEMOGLOBIN 14.5 g/dL (13.0-17.0); IMMATURE GRAN ABSOLUTE AUTO 0.03 10^3/uL (0.00-0.50); IMMATURE GRAN PERCENT AUTO 0.3 % (0.0-5.0); LYMPHOCYTES PERCENT AUTO 19.5 % (20.0-40.0); MEAN CORPUSCULAR HEMOGLOBIN 31.8 pg (27.0-31.0); MEAN CORPUSCULAR HGB CONC 32.2 g/dL (32.0-36.0); MEAN CORPUSCULAR VOLUME 98.9 fL (82.0-92.0); MONOCYTES ABSOLUTE AUTO 0.63 10^3/uL (0.10-0.80); MONOCYTES PERCENT AUTO 5.6 % (2.0-8.0); NEUTROPHILS ABSOLUTE AUTO 8.28 10^3/uL (2.50-7.00); NEUTROPHILS PERCENT AUTO 73.2 % (50.0-70.0); RED BLOOD CELL COUNT 4.56 10^6/uL (4.50-6.00)
[2023-12-29 21:58] LABS: PLATELET COUNT,PLT 140 10^3/uL (150-400)
[2023-12-29 22:09] LABS: ALANINE AMINOTRANSFERASE,ALT 22 U/L (14-63); ALBUMIN 3.25 g/dL (3.40-5.00); ALKALINE PHOSPHATASE 81 U/L (46-116); ANION GAP 15.3 mmol/L (5-15); ASPARTATE AMNIOTRANSFERASE,AST 19 U/L (15-37); BILIRUBIN TOTAL 0.3 mg/dL (0.2-1.0); BLOOD UREA NITROGEN,BUN 24 mg/dL (7-18); CALCIUM 8.3 mg/dL (8.7-10.3); CARBON DIOXIDE,CO2 23.9 mmol/L (21.0-32.0); CHLORIDE,CL 101 mmol/L (98-107); CREATININE 1.56 mg/dL (0.51-1.17); EST CRCL DRUG DOSING (CG) 36.35 mL/min; GLUCOSE RANDOM 336 mg/dL (70-140); POTASSIUM,K 4.2 mmol/L (3.5-5.1); PROTEIN TOTAL,TP 6.8 g/dL (6.4-8.2); SODIUM,NA 136 mmol/L (136-145)
[2023-12-29 22:15] LABS: C-REACTIVE PROTEIN < 0.50 mg/dL (0.00-0.50); ESTIMATED GFR 46 mL/min (>=60)
[2023-12-29] MEDS: EPINEPHrine 0.3 MG/0.3 ML Pen Autoinjector IM ONE (23:22)
== END 2023-12-29 23:30 | disposition home or self-care (01) ==
LOC: KA.ED 21:24
DX: K14.8 Other diseases of tongue (principal); T78.1XXA Other adverse food reactions, not elsewhere classified, initial encounter; I12.9 Hypertensive chronic kidney disease with stage 1 through stage 4 chronic kidney disease, or unspecified chronic kidney disease; N18.31 Chronic kidney disease, stage 3a; E11.22 Type 2 diabetes mellitus with diabetic chronic kidney disease; K44.9 Diaphragmatic hernia without obstruction or gangrene; R06.03 Acute respiratory distress; K21.9 Gastro-esophageal reflux disease without esophagitis; Z86.16 Personal history of COVID-19; Z90.49 Acquired absence of other specified parts of digestive tract; Z79.899 Other long term (current) drug therapy; Z79.82 Long term (current) use of aspirin; Z79.84 Long term (current) use of oral hypoglycemic drugs; Z91.010 Allergy to peanuts; Z91.018 Allergy to other foods
CPT/HCPCS: 36415; 71045; 80053; 85025; 86140; 96372; 96374; 99284; 99284-25; A9270-GY; J2919